=== PATIENT | male | born 1965 | race Hispanic/Latino ===

== ENCOUNTER 2017-07-02 13:56 | Outpatient (CLI) | payer MEDICARE ==
[2017-07-02 14:38] LABS: Hematocrit 41.7 % (35.5-45.6); Mean Corpuscular HGB Conc 34 % (32-34); Mean Corpuscular Hemoglobin 31 pg (28-32); Mean Corpuscular Volume 92 fl (84-94); Platelet Count 174 K/mm3 (140-440); Red Blood Count 4.54 M/mm3 (3.65-5.03); Red Cell Distribution Width 13.7 % (13.2-15.2)
[2017-07-02 14:55] LABS: Alanine Aminotransferase 26 units/L (7-56); BUN/Creatinine Ratio 14; Blood Urea Nitrogen 17 mg/dL (9-20); Calcium 9.3 mg/dL (8.4-10.2); Chol/HDL Ratio 3.11 %; HDL Cholesterol 44 mg/dL (40-59); Hemolysis Index 6; LDL Cholesterol,Direct 56 mg/dL (50-130)
--- NOTE | 2017-07-02 16:43 | XRay Report ---
FINAL REPORT PROCEDURE: XR CHEST ROUTINE 2V TECHNIQUE: Frontal and lateral views HISTORY: SHORTNESS OF BREATH,HTN COMPARISON: None FINDINGS: The trachea is midline. The heart is normal in size. The lungs are clear. There is no evident pneumothorax or pleural fluid. The thoracic cage is intact. IMPRESSION: No radiographically evident acute cardiopulmonary disease
== END 2017-07-02 13:57 | disposition home or self-care (01) ==
LOC: CARD 13:56
PROVIDERS: ATTEND Internal Medicine
DX: I10 Essential (primary) hypertension (principal); R06.02 Shortness of breath
CPT/HCPCS: 36415; 71046; 80053; 80061; 82785; 84436; 84443; 85027; 93005; 93010